=== PATIENT | male | born 1975 | race Two or more races ===

== ENCOUNTER 2020-11-06 13:35 | Emergency (ER) | payer MEDICAID ==
[~2020-11-06] VITALS: Ht 165.1 cm; Wt 100.0 kg
[2020-11-06] MEDS ORDERED: KETOROLAC 60MG/2ML VIAL IM ONE (15:45)
[2020-11-06] MEDS ORDERED: ACETAMINOPHEN 325MG TABLET PO ONE (15:45)
[2020-11-06 17:12] VITALS: BP 155/98
== END 2020-11-06 17:28 | disposition home or self-care (01) ==
LOC: ER 13:35
DX: S05.41XA Penetrating wound of orbit with or without foreign body, right eye, initial encounter (principal); G43.909 Migraine, unspecified, not intractable, without status migrainosus; R03.0 Elevated blood-pressure reading, without diagnosis of hypertension; X58.XXXA Exposure to other specified factors, initial encounter; Y93.89 Activity, other specified; Y92.89 Other specified places as the place of occurrence of the external cause; Y99.8 Other external cause status
CPT/HCPCS: 12013; 96372; 99283; J1885